=== PATIENT | male | born 2000 | race Caucasian/White ===

== ENCOUNTER 2021-06-02 20:23 | Emergency (ER) | payer SELFPAY ==
[~2021-06-02] VITALS: Ht 180.3 cm; Wt 101.2 kg
[2021-06-02 20:34] VITALS: BP 147/78
== END 2021-06-02 21:20 | disposition home or self-care (01) ==
LOC: ER 20:23
DX: R00.2 Palpitations (principal); F84.0 Autistic disorder; Z60.2 Problems related to living alone